=== PATIENT | female | born 1960 | race Caucasian/White ===

== ENCOUNTER 2022-09-17 23:21 | Emergency (ER) | payer OTHER ==
[2022-09-18] MEDS ORDERED: Lidocaine 1% (PF) 30 ML VIAL ONE (00:24)
[2022-09-18] MEDS ORDERED: Bupivacaine PF 0.5% 30 ML VIAL ONE (00:58)
[2022-09-18] MEDS ORDERED: Silver Nitrate Application 1 EACH ONE (02:43)
== END 2022-09-18 03:00 | disposition home or self-care (01) ==
LOC: CSHERS 23:21
DX: S61.313A Laceration without foreign body of left middle finger with damage to nail, initial encounter (principal); E11.9 Type 2 diabetes mellitus without complications; I10 Essential (primary) hypertension; W26.8XXA Contact with other sharp object(s), not elsewhere classified, initial encounter
CPT/HCPCS: 99283; J2001; S0020